=== PATIENT | female | born 1995 | race American Indian/Alaskan Native ===

== ENCOUNTER 2022-08-02 08:43 | Outpatient (CLI) | payer OTHER | END 2022-08-02 11:28 | disposition home or self-care (01) | LOC: TRG 08:43 → APU 08:45 → TRG 10:44 | PROVIDERS: ATTEND Obstetrics & Gynecology | DX: Z34.93 Encounter for supervision of normal pregnancy, unspecified, third trimester (principal); Z3A.38 38 weeks gestation of pregnancy | CPT/HCPCS: 59025 ==

== ENCOUNTER 2022-08-02 11:31 | Inpatient (IN) | payer OTHER ==
[2022-08-02] MEDS ORDERED: LACTATED RINGERS 1,000 ML IV ONE (12:48)
[2022-08-02] MEDS ORDERED: AMPICILLIN/NS 2 GM/100 ML 2 GM/100 ML BAG IV ONE (12:58)
[2022-08-02 13:18] LABS: Basophils % (Auto) 0.3 % (0.0-1.8); Eosinophils # (Auto) 0.1 K/mm3 (0.0-0.4); Eosinophils % (Auto) 0.8 % (0.0-4.3); Hematocrit 37.3 % (30.3-42.9); Hemoglobin 13.2 gm/dl (10.1-14.3); Lymphocytes # (Auto) 1.6 K/mm3 (1.2-5.4); Lymphocytes % (Auto) 15.8 % (13.4-35.0); Mean Corpuscular HGB Conc 35 % (30-34); Mean Corpuscular Volume 90 fl (79-97); Monocytes # (Auto) 0.6 K/mm3 (0.0-0.8); Monocytes % (Auto) 5.4 % (0.0-7.3); Platelet Count 154 K/mm3 (140-440); Red Blood Count 4.17 M/mm3 (3.65-5.03); Red Cell Distribution Width 13.5 % (13.2-15.2)
[2022-08-02] MEDS ORDERED: LACTATED RINGERS 1,000 ML IV SCH (13:30)
[2022-08-02] MEDS ORDERED: miSOPROStol 200 MCG TAB PR PRN (14:00)
[2022-08-02] MEDS ORDERED: CARBOPROST TROMETHAMINE 250 MCG/1 ML INJ IM PRN (14:00)
[2022-08-02] MEDS ORDERED: OXYTOCIN 10 UNIT/1 ML INJ IM PRN (14:00)
[2022-08-02] MEDS ORDERED: ePHEDrine SULFATE 50 MG/1 ML INJ IV PRN ×2 (14:00→14:27)
[2022-08-02] MEDS ORDERED: LIDOCAINE (2%) 20 MG/1 ML VIAL 20 ML MDV INFILTRATI SCH (14:00)
[2022-08-02] MEDS ORDERED: LOPERAMIDE 2 MG CAP PO PRN (14:00)
[2022-08-02] MEDS ORDERED: METHYLERGONOVINE MALEATE 0.2 MG/ML VIAL IM PRN (14:00)
[2022-08-02] MEDS ORDERED: OXYTOCIN DRIP 30 UNITS/500 ML BAG IV SCH (14:00)
[2022-08-02] MEDS ORDERED: TERBUTALINE 1 MG/1 ML INJ SUB-Q PRN (14:00)
[2022-08-02] MEDS ORDERED: NALOXONE 0.4 MG/1 ML INJ IV PRN (14:27)
[2022-08-02] MEDS ORDERED: fentaNYL-BUPIV 2 MCG/ML-0.125% 200 MCG/100 ML BAG EPIDURAL SCH (14:27)
--- NOTE | 2022-08-02 14:29 | Anesthesia Consultation ---
Anesthesia Consult and Med Hx Date of service: 08/02/22 - Airway Anesthetic Teeth Evaluation: Good ROM Head & Neck: Adequate Mental/Hyoid Distance: Adequate Mallampati Class: Class II Intubation Access Assessment: Probably Good - Pulmonary Exam CTA: Yes - Cardiac Exam Cardiac Exam: RRR - Pre-Operative Health Status ASA Pre-Surgery Classification: ASA2 Proposed Anesthetic Plan: Epidural - Pulmonary Hx Smoking: No Hx Asthma: Yes Hx Respiratory Symptoms: No SOB: No COPD: No Home Oxygen Therapy: No Hx Pneumonia: No Hx Sleep Apnea: No - Cardiovascular System Hx Hypertension: No Hx Coronary Artery Disease: No Hx Heart Attack/AMI: No Hx Angina: No Hx Percutaneous Transluminal Coronary Angioplasty (PTCA): No Hx Cardia Arrhythmia: No Hx Pacemaker: No Hx Internal Defibrillator: No Hx Valvular Heart Disease: No Hx Heart Murmur: No Hx Peripheral Vascular Disease: No - Central Nervous System Hx Neuromuscular Disorder: No Hx Seizures: No CVA: No Hx Back Pain: No Hx Psychiatric Problems: No - Gastrointestinal Hx Ulcer: No Hx Gastroesophageal Reflux Disease: No - Endocrine Hx Renal Disease: No Hx End Stage Renal Disease: No Hx Cirrhosis: No Hx Liver Disease: No Hx Insulin Dependent Diabetes: No Hx Non-Insulin Dependent Diabetes: No Hx Thyroid Disease: No Hx Hypothyroidism: No Hx Hyperthyroidism: No - Hematic Hx Anemia: No Hx Sickle Cell Disease: No - Other Systems Hx Alcohol Use: Yes Hx Substance Use: No Hx Cancer: No Hx Obesity: No
--- NOTE | 2022-08-02 14:29 | Anesthesia Day of Surgery ---
Anesthesia Day of Surgery - Day of Surgery Patient Examined: Yes Patient H&P Reviewed: Yes Patient is NPO: Yes Beta Blockers: No Cardiac Clearance: No Pulmonary Clearance: No Jose's Test: N/A
--- NOTE | 2022-08-02 14:30 | Progress Note ---
Labor Epidural - Labor Epidural Start Time: 14:07 Stop Time: 14:12 Performed by:: SHEREE WILSON Procedure: Epidural Requested for Labor Pain. H&P and PT Chart reviewed and consent obtained. Time out performed and the procedure was explained, all questions answered. Patient was placed in a sitting position with monitors applied. The PTs back was prepped and draped in usual sterile fashion. The Skin was localized with 3 mL of 1% lidocaine at L3-L4. A 17-gauge Touhy epidural needle was advanced to BRETT with saline at 7 cm and no blood/CSF was noted via epidural needle. Epidural catheter was advanced to 12 cm. There was negative aspiration for blood and CSF in the catheter and negative response to a test dose of 3 ml 1.5% lidocaine w/ Epi and a sterile dressing was applied Patient tolerated the procedure well and there were no immediate complications noted.
--- NOTE | 2022-08-02 17:41 | History and Physical Report ---
History of Present Illness Date of examination: 08/02/22 Date of admission: 08/02/2022 Chief complaint: Contractions History of present illness: 27-year-old G1, P0 at 38+5 weeks who presents to labor and delivery in active labor. She reports regular uterine contractions and advanced cervical dilatation. The patient also complains of leakage of fluid. Past History Past Medical History: no pertinent history Past Surgical History: no surgical history Social history: single - Obstetrical History Expected Date of Delivery: 08/11/22 Actual Gestation: 38 Week(s) 5 Day(s) : 1 Para: 0 Hx # Term Pregnancies: 0 Number of Pregnancies: 0 Spontaneous Abortions: 0 Induced : 0 Number of Living Children: 0 Medications and Allergies Allergies Allergy/AdvReac Type Severity Reaction Status Date / Time No Known Allergies Allergy Unverified 08/02/22 09:34 Active Meds: Active Medications Carboprost Tromethamine (Carboprost Tromethamine 250 Mcg/1 Ml Inj) 250 mcg IM ONCE PRN PRN Reason: Uterine Bleeding Ephedrine Sulfate (Ephedrine Sulfate 50 Mg/1 Ml Inj) 10 mg IV Q2M PRN PRN Reason: Hypotension Ephedrine Sulfate (Ephedrine Sulfate 50 Mg/1 Ml Inj) 10 mg IV Q2M PRN PRN Reason: Hypotension Lactated Ringer's (Lactated Ringers) 1,000 mls @ 125 mls/hr IV DIRECT EUGENIA Oxytocin/Sodium Chloride (Pitocin/Ns 30 Unit/500ml) 30 units in 500 mls @ 40 mls/hr IV TITR EUGENIA; Protocol Fentanyl/Bupivacaine/Sodium Chlor (Fentanyl-Bupiv 2 Mcg/Ml-0.125%) 200 mcg in 100 mls @ 12 mls/hr EPIDURAL TITR EUGENIA; Protocol Last Admin: 08/02/22 14:52 Dose: 12 mls/hr Lidocaine (Lidocaine (2%) 20 Mg/1 Ml Vial 20 Ml Mdv) 20 ml INFILTRATI ONCE@1400 EUGENIA Stop: 08/03/22 13:59 Loperamide HCl (Loperamide 2 Mg Cap) 2 mg PO ONCE PRN PRN Reason: give with Hemabate Methylergonovine Maleate (Methylergonovine Maleate 0.2 Mg/Ml Vial) 0.2 mg IM ONCE PRN PRN Reason: Uterine Bleeding Mineral Oil (Mineral Oil 30 Ml Oral Liqd) 30 ml PO QHS PRN PRN Reason: Constipation Misoprostol (Misoprostol 200 Mcg Tab) 800 mcg VA ONCE PRN PRN Reason: Uterine Bleeding Naloxone HCl (Naloxone 0.4 Mg/1 Ml Inj) 0.2 mg IV Q5MIN PRN PRN Reason: Respiratory sedation Oxytocin (Oxytocin 10 Unit/1 Ml Inj) 10 unit IM ONCE PRN PRN Reason: Uterine Bleeding Terbutaline Sulfate (Terbutaline 1 Mg/1 Ml Inj) 0.25 mg SUB-Q ONCE PRN PRN Reason: Hyperstimulation/Hypertonicity Review of Systems All systems: negative Genitourinary: leakage of fluid, contractions - Vital Signs Vital signs: Vital Signs Pulse Pulse Ox 84 97 08/02/22 12:30 08/02/22 12:30 Temp Pulse Resp BP Pulse Ox 98.2 F 106 H 100/65 97 08/02/22 12:34 08/02/22 17:31 08/02/22 17:07 08/02/22 17:31 - Physical Exam Breasts: Positive: deferred Cardiovascular: Regular rate Lungs: Positive: Clear to auscultation Abdomen: Positive: normal appearance Results Result Diagrams: 08/02/22 12:44 Abnormal lab results 08/02/22 08/02/22 Range/Units 12:00 12:44 MCHC 35 H (30-34) % Seg Neutrophils % 77.7 H (40.0-70.0) % Seg Neutrophils # 8.0 H (1.8-7.7) K/mm3 Membranes Rupture Positive A (Negative) All other labs normal. Assessment and Plan - Patient Problems (1) Active labor at term Current Visit: Yes Status: Acute Plan to address problem: admit to L&D
[2022-08-02] MEDS ORDERED: MINERAL OIL 30 ML ORAL LIQD ONE (18:12)
[2022-08-02] MEDS ORDERED: diphenhydrAMINE 25 MG CAP PO PRN (18:31)
[2022-08-02] MEDS ORDERED: PROMETHAZINE 25 MG TAB PO PRN (18:31)
[2022-08-02] MEDS ORDERED: PROMETHAZINE 25 MG RECT SUPP PR PRN (18:31)
[2022-08-02] MEDS ORDERED: WITCH HAZEL/ GLYCERIN PAD TP PRN (18:31)
[2022-08-02] MEDS ORDERED: MAGNESIUM HYDROXIDE (MOM) ORAL LIQD UDC PO PRN (18:31)
[2022-08-02] MEDS ORDERED: ONDANSETRON 4 MG/2 ML INJ IV PRN (18:31)
[2022-08-02] MEDS ORDERED: LANOLIN/ZINC/DIMETHICONE (LANSINOH) 7 GM TP PRN (18:31)
--- NOTE | 2022-08-02 18:31 | Procedure Note ---
OB Delivery Note - Delivery Date of Delivery: 08/02/22 Surgeon: SUKHJINDER SAWANT Estimated blood loss: 100cc - Vaginal Delivery presentation: vertex Delivery position: OA Delivery monitor: external FHT, external uterine Route of delivery: Delivery placenta: spontaneous Delivery cord: 3 umbilical vessels Episiotomy: none Delivery laceration: none, 2nd degree Delivery repair: vicryl Anesthesia: epidural - A at 1 minute: 8 at 5 minutes: 9 Infant Gender: Male (Weight 7 pounds 4 ounces)
[2022-08-02] MEDS ORDERED: HYDROcodone/ACETAMINOPHEN 5-325 MG TAB PO PRN (18:32)
[2022-08-02] MEDS ORDERED: ACETAMINOPHEN 325 MG TAB PO PRN (18:32)
[2022-08-02] MEDS ORDERED: MINERAL OIL 30 ML ORAL LIQD PO PRN (22:00)
[2022-08-03] MEDS: IBUPROFEN 800 MG TAB PO SCH ×5 (00:59→21:26)
--- NOTE | 2022-08-03 08:51 | Progress Note ---
Assessment and Plan A:PPD#1 s/p at term P: Continue with routine care with discharge anticipated tomorrow. Subjective - Subjective Date of service: 08/03/22 Principal diagnosis: PPD#1 s/p at term Interval history: PPD#1 s/p at term. Patient is feeling well and without complaints. She is ambulating in the room and reports no issues. She also reports adequate pain control and decreasing lochia. Patient reports: appetite normal, voiding normally, pain well controlled, ambulating normally : doing well Objective - Vital Signs Latest vital signs: Vital Signs Temp Pulse Resp BP BP Pulse Ox Pulse Ox 08/03/22 07:50 97.5 F L 73 20 116/78 99 08/03/22 07:40 97 08/03/22 05:05 97.3 F L 84 20 111/78 97 08/03/22 01:17 97.9 F 87 20 122/84 97 08/02/22 21:57 100 08/02/22 21:48 98.5 F 83 18 125/86 100 08/02/22 19:51 88 100 08/02/22 19:46 90 99 08/02/22 19:45 97.3 F L 08/02/22 19:43 82 115/66 08/02/22 19:41 85 97 08/02/22 19:36 76 99 08/02/22 19:31 81 98 08/02/22 19:29 81 137/62 08/02/22 19:26 81 97 08/02/22 19:21 81 98 08/02/22 19:16 79 98 08/02/22 19:13 83 129/86 08/02/22 19:11 83 100 08/02/22 19:06 86 99 08/02/22 19:01 85 100 08/02/22 18:59 78 134/78 08/02/22 18:56 89 98 08/02/22 18:51 77 100 08/02/22 18:46 90 100 08/02/22 18:43 97.4 F L 86 16 116/66 08/02/22 18:41 94 H 98 08/02/22 18:37 88 113/73 08/02/22 18:36 87 100 08/02/22 18:31 89 98 08/02/22 18:26 92 H 99 08/02/22 18:21 90 99 08/02/22 18:16 96 H 100 08/02/22 18:11 118 H 100 08/02/22 18:08 92 H 121/82 08/02/22 18:06 111 H 100 08/02/22 18:01 109 H 100 08/02/22 17:56 87 100 08/02/22 17:51 110 H 99 08/02/22 17:46 125 H 100 08/02/22 17:41 114 H 99 08/02/22 17:37 106 H 110/68 08/02/22 17:36 107 H 98 08/02/22 17:31 106 H 97 08/02/22 17:26 110 H 99 08/02/22 17:21 97 H 98 08/02/22 17:16 98 H 97 08/02/22 17:11 98 H 98 08/02/22 17:07 99 H 100/65 08/02/22 17:06 94 H 100 08/02/22 17:01 107 H 99 08/02/22 16:56 94 H 99 08/02/22 16:51 105 H 100 08/02/22 16:46 110 H 99 08/02/22 16:41 110 H 99 08/02/22 16:39 93 H 109/70 08/02/22 16:36 107 H 99 08/02/22 16:31 95 H 98 08/02/22 16:26 110 H 100 08/02/22 16:21 102 H 99 08/02/22 16:16 98 H 100 08/02/22 16:11 106 H 99 08/02/22 16:08 113 H 139/76 08/02/22 16:06 111 H 99 08/02/22 16:01 86 97 08/02/22 15:56 86 97 08/02/22 15:51 89 97 08/02/22 15:46 89 98 08/02/22 15:41 88 98 08/02/22 15:37 85 121/67 08/02/22 15:36 82 97 08/02/22 15:31 91 H 99 08/02/22 15:27 93 H 94 08/02/22 15:26 92 H 95 08/02/22 15:21 90 96 08/02/22 15:20 89 94 08/02/22 15:16 88 95 08/02/22 15:13 92 H 94 08/02/22 15:11 90 95 08/02/22 15:09 88 100/60 08/02/22 15:07 93 H 94 08/02/22 15:06 90 95 08/02/22 15:02 94 H 94 08/02/22 15:01 90 97 08/02/22 14:56 92 H 97 08/02/22 14:51 98 H 96 08/02/22 14:46 95 H 99 08/02/22 14:41 78 99 08/02/22 14:37 101 H 108/54 08/02/22 14:36 91 H 97 08/02/22 14:31 87 96 08/02/22 14:30 89 106/55 08/02/22 14:26 86 114/56 99 08/02/22 14:21 88 97 08/02/22 14:16 108 H 149/95 99 08/02/22 14:15 88 139/85 08/02/22 14:13 107 H 176/88 08/02/22 14:11 90 98 08/02/22 14:10 95 H 144/89 08/02/22 14:08 99 H 139/99 08/02/22 14:06 95 H 98 08/02/22 14:01 100 H 96 08/02/22 13:56 92 H 97 08/02/22 13:51 113 H 99 08/02/22 13:46 114 H 99 08/02/22 13:41 112 H 99 08/02/22 13:36 110 H 100 08/02/22 13:31 110 H 97 08/02/22 13:27 81 139/85 08/02/22 13:26 89 97 08/02/22 13:21 89 96 08/02/22 13:16 89 98 08/02/22 13:11 93 H 97 08/02/22 13:06 105 H 94 08/02/22 13:01 92 H 97 08/02/22 12:45 89 98 08/02/22 12:43 108 H 94 08/02/22 12:40 99 H 96 08/02/22 12:35 91 H 97 08/02/22 12:34 98.2 F 08/02/22 12:30 84 97 Intake and Output 08/02/22 08/03/22 08/03/22 23:59 07:59 15:59 Intake Total 360 Output Total 1300 Balance -1300 360 Intake: Intake, Free Water 360 Output: Urine 1300 Indwelling Catheter 400 Void 900 Other: Total, Output Amount 900 # Voids Void 1 1 Estimated Blood Loss 100 - Labs Labs: Abnormal lab results 08/02/22 08/02/22 Range/Units 12:00 12:44 MCHC 35 H (30-34) % Seg Neutrophils % 77.7 H (40.0-70.0) % Seg Neutrophils # 8.0 H (1.8-7.7) K/mm3 Membranes Rupture Positive A (Negative)
[2022-08-03 09:17] LABS: Hematocrit 34.4 % (30.3-42.9); Hemoglobin 11.9 gm/dl (10.1-14.3)
--- NOTE | 2022-08-03 10:11 | Post Anesthesia Evaluation ---
- Post Anesthesia Evaluation Patient Participated: Yes Airway Patent: Yes Stable Respiratory Function: Yes Nausea/Vomiting: No Temp > 96.8F: Yes Pain Manageable: Yes Adequeate Hydration: Yes Anesthesia Complications: No Block Receding Appropriately: Yes Patient on Ventilator: No
--- NOTE | 2022-08-03 12:47 | Discharge Summary ---
Providers - Providers Date of Admission: 08/02/22 11:32 Date of discharge: 08/04/22 Attending physician: SUKHJINDER SAWANT Primary care physician: SUKHJINDER SAWANT Hospitalization Reason for admission: active labor, rupture of membranes, IUP at term Delivery: Episiotomy: none Laceration: 2nd degree Other procedures: none complications: none Discharge diagnosis: IUP at term delivered [place] baby: male Hospital course: 27-year-old G1, P0 at 38+5 weeks who presented to labor and delivery in active labor and SROM. She went on to have a of a viable male . Her course was unremarkable. Condition at discharge: Good Disposition: 01 HOME / SELF CARE / HOMELESS Plan - Discharge Medications Prescriptions: Ibuprofen [Motrin] 800 mg PO Q8H PRN #30 tablet PRN Reason: Pain - Provider Discharge Summary Activity: routine, no sex for 6 weeks, no heavy lifting 4 weeks, no strenuous exercise Diet: routine Instructions: routine Additional instructions: [] Smoking cessation referral if applicable(refer to patient education folder for contact #) [] Refer to [facility] Booklet Call your doctor immediately for: * Fever > 100.5 * Heavy vaginal bleeding ( >1 pad per hour) * Severe persistent headache * Shortness of breath * Reddened, hot, painful area to leg or breast * Drainage or odor from incision. * Keep incision clean and dry at all times and follow doctor's instructions regarding bathing/showering Please call the office to schedule your newborns circumcision. - Follow up plan Follow up: JENNIE HALL NP [Advanced Practice Nurse] - 08/30/22
[2022-08-04 14:02] VITALS: BP 129/83
== END 2022-08-04 12:40 | disposition home or self-care (01) | DRG 775 ==
LOC: TRG 11:31 → LD 11:32 → APU 11:32 → LD 12:28 → TRG 18:42 → OB 21:31
PROVIDERS: ADMIT Obstetrics & Gynecology; ATTEND Obstetrics & Gynecology
PROC: 0KQM0ZZ Repair Perineum Muscle, Open Approach (ICD-10-PCS; principal; 2022-08-02)
PROC: 10E0XZZ Delivery of Products of Conception, External Approach (ICD-10-PCS; 2022-08-02)
PROC: 3E0R3BZ Introduction of Anesthetic Agent into Spinal Canal, Percutaneous Approach (ICD-10-PCS; 2022-08-02)
PROC: 00HU33Z Insertion of Infusion Device into Spinal Canal, Percutaneous Approach (ICD-10-PCS; 2022-08-02)
DX: O99.52 Diseases of the respiratory system complicating childbirth (principal); O70.1 Second degree perineal laceration during delivery; Z37.0 Single live birth; Z3A.38 38 weeks gestation of pregnancy; Z20.822 Contact with and (suspected) exposure to COVID-19; J45.909 Unspecified asthma, uncomplicated
CPT/HCPCS: 36415; 59025; 84112; 85014; 85018; 85025; 86592; 86706; 86762; 86850; 86900; 86901; 87806; G0378; J3490; J0290; J7120; U0003